=== PATIENT | female | born 1995 | race Caucasian/White ===

== ENCOUNTER 2017-08-13 18:38 | Emergency (ER) | payer OTHER, SELFPAY ==
[2017-08-13 18:42] VITALS: BP 111/84; PULSE 76; RESP 16; TEMP 36.4; O2SAT 98; BMI 22.8
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
[2017-08-13 19:33] VITALS: BP 105/70; PULSE 75; RESP 14; O2SAT 99
== END 2017-08-13 19:33 | disposition home or self-care (01) ==
PROVIDERS: Emergency Provider Emergency Medicine; Family Provider Internal Medicine; PCP Internal Medicine
DX: S00.83XA Contusion of other part of head, initial encounter (principal); Y04.2XXA Assault by strike against or bumped into by another person, initial encounter; Y93.9 Activity, unspecified; Y92.119 Unspecified place in children's home and orphanage as the place of occurrence of the external cause; Y99.0 Civilian activity done for income or pay; F32.9 Major depressive disorder, single episode, unspecified; F41.9 Anxiety disorder, unspecified; Z72.0 Tobacco use; Z79.899 Other long term (current) drug therapy
CPT/HCPCS: 99285

== ENCOUNTER 2018-04-10 15:15 | Emergency (ER) | payer MEDICAID, SELFPAY ==
[2018-04-10 15:17] VITALS: BP 103/66; PULSE 111; RESP 18; TEMP 36.8; O2SAT 96; BMI 21.4
--- NOTE | 2018-04-10 15:46 | ED.VISSUMM ---
- ER Visit Summary Date of Service: 04/10/18 Chief Complaint: Abdominal pain History of Present Illness: The patient is a 23 F who presents with right lower abdominal pain that has been constant for the past year. Patient states the pain is over the right side of her incision. Patient states her pain is aching and is worse with bending over and then standing up. Patient states she feels like something may be growing and kicking in her abdomen. Patient denies any nausea or vomiting. Patient admits to some loose diarrhea. Physical Examination: Vital signs are stable. Patient is afebrile. Patient is in no acute distress. Oral mucosa is pink and moist. Neck is supple. Trachea is midline. There is no JVD noted. Heart was regular rate and rhythm. Lungs are clear and equal bilaterally. Abdomen is soft. Bowel sounds are normal. There is no tenderness noted. There are no masses palpated. Her section incision is well-healed with no erythema or other signs of infection. Cranial nerves II through XII are intact. There are no focal motor or sensory deficits noted. The remaining physical exam is within normal limits. Test Results: CBC, basic metabolic profile, urinalysis, urine hCG were obtained were all within normal limits. Emergency Department Course and Treatment: Patient was given IV fluids. Patient was sleeping on reevaluation. Patient was instructed to follow-up with her primary care physician in 5-7 days. Patient understood and was agreeable with the plan. All questions were answered. Disposition: Discharge home Impression: Abdominal pain This note was generated with [employer] dictation software. It may contain incorrect words, spelling, and punctuation that were not noted in review of the chart prior to signing ED Disposition - Plan for ED Patient: Disposition: Home or Assisted Living Chief Complaint: Abd Pain Diagnosis: Abdominal pain Instructions: ED Abdominal Pain Unkn Cause Referrals: Sophia Akers MD [Primary Care Provider] -
[2018-04-10 15:54] LABS: Mucous, Urine 0 SEEN /hpf (<or=2+); Red Blood Cells-Urine 0 SEEN /hpf (0-5); White Blood Cells 0 SEEN /hpf (0-5)
[2018-04-10] MEDS: 0.9% Normal Saline 1,000 ML 1000 ML IV (15:54)
[2018-04-10 16:02] LABS: Color, Urine Yellow (Yellow); Glucose, Dipstick Normal (Normal); Ketone-Dipstick Negative (Negative); Leukocyte Esterase-Dipstick Negative /ul (Negative); Nitrite-Dipstick Negative (Negative); Occult Blood-Urine Negative /ul (Negative); Protein-Dipstick Negative (Negative); Urine Bilirubin Dipstick Negative (Negative); Urine Urobilinogen Normal (Normal)
[2018-04-10 16:04] LABS: Internal QC Validated? YES +Cl - CLEAR BKGD; Pregnancy, Urine Negative Negative; Urine Clarity Clear (Clear)
[2018-04-10 16:11] LABS: Absolute Lymphocyte Count 2.38 X10^3/ul (0.83-4.51); Absolute Neutrophil Count 7.7 X10^3/uL (2.0-7.7); Basophil# 0.04 X10^3/uL; Basophil% 0.4 % (0-1); Eosinophil# 0.05 X10^3/uL; Eosinophils% 0.5 % (0-5); Hematocrit 42.7 % (37-47); Hemoglobin 13.8 g/dl (12.0-15.0); Lymphocyte # 2.38 X10^3/ul (4.0); Lymphocyte % 22.1 % (19-41); Mean Corp Hgb Conc 32.3 g/gl (32-36); Mean Corpuscular Hgb 27.4 pg (27.0-32.0); Mean Corpuscular Volume 84.9 fL (81-99); Mean Platelet Vol. 11.3 fl (6.2-12.0); Monocyte# 0.57 X10^3/uL; Monocyte% 5.3 % (0-10); Neutrophil # 7.73 X10^3/uL (2.7-7.7); Neutrophil % 71.5 % (47-70); Platelet Count 251 K/mm3 (150-450); RBC Distribution Width CV 13.6 % (11.6-14.6); RBC Distribution Width SD 41.8 fl (35.1-43.9); Red Blood Count 5.03 M/mm3 (4.2-5.4); White Blood Count 10.8 K/mm3 (4.4-11.0)
[2018-04-10 16:14] LABS: Squamous Epithelial Cells - UA 10-25 SEEN /hpf (5-10)
[2018-04-10 16:14] LABS: POSITIVE COUNT NO; POSITIVE DIFFERENTIAL NO; POSITIVE MORPHOLOGY NO
[2018-04-10 16:15] LABS: Bacteria 1+ /hpf (None Seen)
[2018-04-10 16:29] LABS: Anion Gap 9 (5-15); BUN 11 mg/dL (7-18); Calcium,Total 8.9 mg/dL (8.5-10.1); Chloride 104 mmol/L (98-107); Creatinine, Serum 0.65 mg/dL (0.55-1.02); EST Glomerular Filtration Rate 118 mL/min (>60); Est Glom Filt Rate - Afr Amer 143 mL/min (>60); Estimated Creatinine Clearance 99.84 ml/min; Glucose 102 mg/dL (74-106); Potassium 3.6 mmol/L (3.5-5.1); Sodium Level 141 mmol/L (136-145)
[2018-04-10 16:55] VITALS: BP 127/69; PULSE 72; RESP 15; O2SAT 97
== END 2018-04-10 16:56 | disposition home or self-care (01) ==
PROVIDERS: Emergency Provider Emergency Medicine; Family Provider Internal Medicine; PCP Internal Medicine
DX: R10.31 Right lower quadrant pain (principal); Z72.0 Tobacco use
CPT/HCPCS: 80048; 81001; 81025; 85025; 96360; 99283; J7030

== ENCOUNTER 2018-12-05 19:56 | Emergency (ER) | payer MEDICAID, SELFPAY ==
[2018-12-05 19:59] VITALS: BP 116/69; PULSE 76; RESP 18; TEMP 36.3; O2SAT 95; BMI 20.4
--- NOTE | 2018-12-05 20:42 | ED.DCSUM_ITS ---
- ER Visit Summary Date of Service: 12/05/18 Chief Complaint: Right earache, sore throat and tongue swelling History of Present Illness: The patient is a 23 F past male history of depression. Patient states around 11 AM today she thought she was getting a right earache and a mild sore throat. She denies any fever chills or cough. She is able to swallow. Now she thinks her tongue may be swollen a little bit. Currently she is on Celexa. She did take Benadryl at home. She denies any trouble swallowing or breathing. Physical Examination: Young female no acute distress. Vital signs are stable. She is afebrile. Pulse ox 95% on room air no hypoxia. She is sitting reclined in the bed having no trouble breathing or swallowing. No drooling or stridor. HEENT exam TMs are normal and canals are normal bilaterally. Posterior pharynx normal. Her tongue at worst is mildly swollen it may be normal. It is definitely not significantly enlarged. She has no trouble swallowing or breathing. There is no drooling or stridor. Underneath her tongue is nonswollen and nontender. There is no Gonzalez angina. Neck is nontender. No lymphadenopathy. No tracheal tenderness. Lungs clear to auscultation bilaterally. Heart regular rhythm no murmur. Abdomen soft nontender. Patient moving all 4 extremities. Neurovascular intact. Skin no rashes. Neurologically awake and alert no focal deficits. Test Results: None Emergency Department Course and Treatment: Clinically and physical exam there is no signs of infection. Posterior pharynx is normal. There is no strep throat. The right and left eardrums and canals are normal. Tongue may be mildly swollen. She will be given a dose of prednisone and reevaluate. No history of any type of allergic reaction. Treatment Plan: Repeat exam patient doing well at 2153 pm discharge to home. Swelling is now worse and probably improved. Benadryl at home. Return if worse Disposition: Discharge Impression: Tongue swelling uncertain etiology This note was generated with [employer] dictation software. It may contain incorrect words, spelling, and punctuation that were not noted in review of the chart prior to signing ED Disposition - Plan for ED Patient: Disposition: Home or Assisted Living Referrals: Sophia Akers MD [Primary Care Provider] - 3-5 Days if not improving Additional Instructions: Benadryl as needed if tongue feels swollen. Return if worse if much more swollen no trouble breathing or swallowing.
[2018-12-05] MEDS: predniSONE 20 MG Tablet 60 MG PO (20:44)
--- NOTE | 2018-12-05 21:53 | ED.DEP ---
ED Disposition - Plan for ED Patient: Disposition: Home or Assisted Living Instructions: ED Allergic Reaction Local Other Referrals: Sophia Akers MD [Primary Care Provider] - 3-5 Days if not improving Additional Instructions: Benadryl as needed if tongue feels swollen. Return if worse if much more swollen no trouble breathing or swallowing.
[2018-12-05 22:02] VITALS: RESP 18
== END 2018-12-05 22:03 | disposition home or self-care (01) ==
PROVIDERS: Emergency Provider Emergency Medicine; Family Provider Internal Medicine; PCP Internal Medicine
DX: R22.0 Localized swelling, mass and lump, head (principal); H92.01 Otalgia, right ear; F32.9 Major depressive disorder, single episode, unspecified; Z72.0 Tobacco use
CPT/HCPCS: 99283

== ENCOUNTER → 2018-12-08 17:06 | Outpatient (CLI) | payer MEDICAID, SELFPAY ==
[2018-12-08 13:52] VITALS: BMI 20.4
[2018-12-14 17:37] LABS: HPV Reflexed? NOT INDICATED
== END ==
PROVIDERS: Family Provider Internal Medicine; PCP Internal Medicine; Referring Provider Obstetrics & Gynecology; Visit Provider Obstetrics & Gynecology
DX: Z12.4 Encounter for screening for malignant neoplasm of cervix (principal)
CPT/HCPCS: 87624; 88175; G0145

== ENCOUNTER → 2020-01-06 10:44 | Outpatient (CLI) | payer MEDICAID, SELFPAY ==
[2020-01-06 10:20] VITALS: BMI 20.4
[2020-01-06 11:03] LABS: Absolute Lymphocyte Count 1.66 X10^3/uL (0.83-4.51); Absolute Neutrophil Count 3.9 X10^3/uL (2.0-7.7); Basophil# 0.03 X10^3/uL; Basophil% 0.5 % (0-1); Eosinophil# 0.15 X10^3/uL; Eosinophils% 2.3 % (0-5); Hematocrit 39.5 % (37-47); Hemoglobin 12.5 g/dL (12.0-15.0); Lymphocyte # 1.66 X10^3/ul (4.0); Lymphocyte % 25.9 % (19-41); Mean Corp Hgb Conc 31.6 g/dL (32-36); Mean Corpuscular Hgb 28.2 pg (27.0-32.0); Monocyte# 0.61 X10^3/uL; Monocyte% 9.5 % (0-10); NRBC Flagged by Analyzer 0 % (0-5); Neutrophil # 3.93 X10^3/uL (2.7-7.7); Neutrophil % 61.5 % (47-70); Platelet Count 229 K/mm3 (150-450); RBC Distribution Width CV 13.5 % (11.6-14.6); RBC Distribution Width SD 44.5 fl (35.1-43.9); Red Blood Count 4.44 M/mm3 (4.2-5.4); White Blood Count 6.4 K/mm3 (4.4-11.0)
[2020-01-06 11:24] LABS: Thyroid Stim Hormone (TSH) 2.52 uIU/mL (0.358-3.74)
== END ==
PROVIDERS: PCP Internal Medicine; Referring Provider Obstetrics & Gynecology; Visit Provider Obstetrics & Gynecology
DX: N93.9 Abnormal uterine and vaginal bleeding, unspecified (principal)
CPT/HCPCS: 36415; 84443; 85025

== ENCOUNTER → 2020-01-27 12:57 | Outpatient (CLI) | payer MEDICAID, SELFPAY ==
[2020-01-06 10:20] VITALS: BMI 20.4
--- NOTE | 2020-01-27 12:58 | US_ITS ---
STUDY: ULTRASOUND TRANSVAGINAL CLINICAL: Female, 25 years old. aub TECHNIQUE: Transvaginal COMPARISON: None. FINDINGS: Normal uterine size measuring 8.3 cm in maximal craniocaudal dimension. There are no myometrial masses. Normal endometrial thickness measuring 9.6 mm. There are no endometrial masses, and there is no fluid in the endometrial cavity. Normal uterine cervix. Normal right ovary, measuring 3.3 x 2.1 x 3.4 cm. There is a simple 1.7 x 1.7 x 1.5 cm cyst. Normal left ovary, measuring 2.8 x 1.9 x 1.9 cm. There are multiple follicles without a dominant cyst. There is no free fluid in the pelvis. US/Transvaginal Non- IMPRESSION: Within normal limits appearing uterus. Simple 1.7 x 1.5 x 1.7 cm right ovarian cyst. Electronically Signed: Emily Hinds MD at 17:12 EDT Tel , Service support ,
--- NOTE | 2020-01-27 12:58 | US_ITS ---
STUDY: ULTRASOUND TRANSVAGINAL CLINICAL: Female, 25 years old. aub TECHNIQUE: Transvaginal COMPARISON: None. FINDINGS: Normal uterine size measuring 8.3 cm in maximal craniocaudal dimension. There are no myometrial masses. Normal endometrial thickness measuring 9.6 mm. There are no endometrial masses, and there is no fluid in the endometrial cavity. Normal uterine cervix. Normal right ovary, measuring 3.3 x 2.1 x 3.4 cm. There is a simple 1.7 x 1.7 x 1.5 cm cyst. Normal left ovary, measuring 2.8 x 1.9 x 1.9 cm. There are multiple follicles without a dominant cyst. There is no free fluid in the pelvis. US/Pelvic (Non ) IMPRESSION: Within normal limits appearing uterus. Simple 1.7 x 1.5 x 1.7 cm right ovarian cyst. Electronically Signed: Emily Hinds MD at 17:12 EDT Tel , Service support ,
== END ==
PROVIDERS: PCP Internal Medicine; Referring Provider Obstetrics & Gynecology; Visit Provider Obstetrics & Gynecology
DX: N93.9 Abnormal uterine and vaginal bleeding, unspecified (principal)
CPT/HCPCS: 76830; 76856

== ENCOUNTER 2022-08-22 15:46 | Emergency (ER) | payer MEDICAID, SELFPAY ==
[2022-08-22 15:47] VITALS: BP 111/42; PULSE 78; RESP 16; TEMP 36.1; O2SAT 100; BMI 18.3
--- NOTE | 2022-08-22 17:25 | RAD_ITS ---
STUDY: X-RAY - UNILATERAL RIBS ( RIGHT ) WITH CHEST REASON FOR EXAM: Female, 27 years old. rib pain TECHNIQUE - RIBS: 3 view(s) of the ribs. TECHNIQUE - CHEST: PA COMPARISON: None. FINDINGS - RIBS: Normal visualized ribs without a demonstrated fracture. FINDINGS - CHEST: The lungs are clear and expanded. There is no demonstrated pleural abnormality. Normal size heart. Normal mediastinum and isabel. Normal visualized pulmonary arteries. Normal visualized aortic arch and descending thoracic aorta. Thoracolumbar spine demonstrates mild dextroscoliosis or splinting.. Normal visualized ribs, clavicles, and shoulders. There is no demonstrated abnormality of the visualized soft tissue structures of the upper abdomen. RAD/Ribs Uni Min 3V w/PA Chest IMPRESSION: RIBS: Normal x-ray examination of the ribs. If pain persists bone scan or CT would be helpful for further evaluation CHEST: No acute cardiopulmonary pathology. Electronically Signed: Anuj Jordan MD at 17:44 EST ,
--- NOTE | 2022-08-22 17:40 | EDS_ITS ---
HPI <SAULO Ryan - Last Filed: 08/22/22 17:48> History of Present Illness Chief Complaint: Chest Pain Narrative Narrative: Patient is a 27-year-old female with history of post depression who presents the emergency department with 2 months of right-sided chest pain. Patient states the pain has been worse with deep inspiration, movement of her arms, turning. Patient states that she is just here to get it checked out. She denies any cough, denies any trauma, fever chills nausea or vomiting. She denies being on any control, no recent travel, no history of blood clots in her legs or lungs PFSH <SAULO Ryan - Last Filed: 08/22/22 17:48> [facility] Home Medications citalopram 40 mg tablet (Celexa) 40 mg PO DAILY #90 tabs 11/07/21 [Rx Last Taken Unknown] naproxen 500 mg tablet 500 mg PO BID #14 tabs 08/22/22 [Rx Last Taken Unknown] Allergy/AdvReac Type Severity Reaction Status Date / Time levofloxacin [From Levaquin] Allergy Hives Verified 05/30/21 08:13 Penicillins Allergy Hives rash Verified 05/30/21 08:13 throat swelling Surgical History History of delivery History of tonsillectomy and adenoidectomy Steele teeth removed Social History Smoking Status: Current every day smoker tobacco type: cigarettes alcohol intake: never substance use type: does not use caffeine: Yes what type of physical activity do you participate in: none seatbelt use: always do you feel safe at home: Yes additional social history: [employer] for [employer] Patient works at [employer] ROS <SAULO Ryan - Last Filed: 08/22/22 17:48> ROS ED ROS Narrative Constitutional: Negative for fever, chills, weight loss, weakness Eyes: Negative for vision loss, vision change, double vision ENT: Negative for any sore throat, ear pain, congestion Cardiovascular: Negative for any chest pain, tightness, palpitations Respiratory: Negative for any cough, sputum production, hemoptysis, dyspnea, dyspnea on exertion, orthopnea Gastrointestinal: Negative for any abdominal pain, nausea, vomiting, diarrhea, constipation, blood in stool, blood in vomit : Negative for any urinary frequency, dysuria, retention, blood in urine Muscle skeletal: Negative for any muscle joint pain, stiffness, myalgias, arthralgias, neck pain, back pain. Positive right-sided anterior chest pain Neurological: Negative for any headache, syncope, numbness or tingling, dizziness Skin: Negative for any rashes, lumps, itching, abrasions, lacerations Psychiatric: Negative for any depression, anxiety, stress, suicidal ideation, homicidal ideation Hematologic: Negative for any easy bruising, excessive bruising, easy bleeding Allergies: Negative for any eczema, hives, rash EXAM <SAULO Ryan - Last Filed: 08/22/22 17:48> Physical Exam Narrative Exam Narrative: Vital signs reviewed. HEET: Head normocephalic atraumatic, TMs clear bilaterally. Posterior pharynx is clear, moist mucous membranes. Nares clear bilaterally. Neck: Supple with no lymphadenopathy or tenderness. No signs of meningismus, negative jolt sign. Cardiac: Regular rate and rhythm no murmurs gallops or rubs, equal peripheral pulses bilaterally. Respiratory: Lungs clear to auscultation bilaterally. Patient has tenderness to the anterior right chest. This pain is also worse with any rotation. No crepitus noted Abdomen: Soft, nontender, nondistended. No abdominal bruit or pulsatile masses. No hepatosplenomegaly Extremities: No peripheral edema, no signs of gross trauma or deformity. Active full range of motion of all extremities. Neuro: Cranial nerves II through XII intact, no focal neurological deficits. Skin: Clean dry and intact with no rash, purpura, petechiae, vesicles or pustules. Backs/flank: No CVA tenderness, no midline spinal tenderness, no deformity. Psych: Normal mood and affect. No SI, HI or acute psychosis. Const Vital Signs: 08/22/22 15:47 08/22/22 18:00 Temperature 97 F L Temperature Source Temporal Pulse Rate 78 Respiratory Rate 16 14 Blood Pressure 111/42 L Blood Pressure Mean 65 Pulse Ox 100 Oxygen Delivery Method Room Air <Dr. Rohit Carroll MD - Last Filed: 03/02/23 18:15> Physical Exam Const Vital Signs: 08/22/22 15:47 08/22/22 18:00 Temperature 97 F L Temperature Source Temporal Pulse Rate 78 Respiratory Rate 16 14 Blood Pressure 111/42 L Blood Pressure Mean 65 Pulse Ox 100 Oxygen Delivery Method Room Air [facility] <SAULO Ryan - Last Filed: 08/22/22 17:48> [facility] Radiography Diagnostic Testing: Clinical Impression(s) from Imaging Studies Ribs w/Chest X-Ray 08/22/22 17:25 IMPRESSION: RIBS: Normal x-ray examination of the ribs. If pain persists bone scan or CT would be helpful for further evaluation CHEST: No acute cardiopulmonary pathology. Electronically Signed: Anuj Jordan MD at 17:44 EST , Differential Diagnosis Chest pain/SOB: pulmonary embolism and pneumonia Why less likely: Patient is PERC negative Why less likely: No infectious-like symptoms Additional Tests and Interventions Diagnositc testing considered but not performed: PA the chest, no concern for pulmonary embolus Treatment and Re-Evaluation :: Patient appears generally well, patient appears nontoxic, vital signs are stable. Patient presents to the emergency department with complaints of right- sided chest pains been ongoing for 2 months. Patient is PERC negative, patient's vital signs are stable. Patient's physical examination consistent with a muscle pain, costochondritis. Patient did receive x-rays of the right rib series as well as a chest. This was unremarked for any acute process. There is no indication to suspect any pneumothorax, pneumonia. Patient will continue to use anti-inflammatories, perform gentle stretching and to ice and heat. Patient is agreeable with the plan. She was given return precaution. Patient stable for discharge. <Dr. Rohit Carroll MD - Last Filed: 08/22/22 18:15> [facility] Narrative Medical decision making narrative: Seen and evaluated independently and in conjunction with nurse practitioner. Agree with notes above unless documented otherwise. Patient with point pain and reproducible tenderness at an intercostal space just below the right breast that has been there for several weeks, started when she was coughing really hard. Her illness is better now. She denies any dyspnea, hurts more to move and more to breathe. 4 view chest and right rib series normal on my interpretation, radiology confirms this is unremarkable. Patient reassured, prescribed NSAIDs, her PERC score is 0 no further work-up indicated for this chest wall pain. She is comfortable with overall plan. Radiography Diagnostic Testing: Clinical Impression(s) from Imaging Studies Ribs w/Chest X-Ray 08/22/22 17:25 IMPRESSION: RIBS: Normal x-ray examination of the ribs. If pain persists bone scan or CT would be helpful for further evaluation CHEST: No acute cardiopulmonary pathology. Electronically Signed: Anuj Jordan MD at 17:44 EST Reading Location ID and State: [address] [place] [address] , Service support , Discharge Plan Triage Chief Complaint: Chest Pain ED Midlevel Provider: Edwin Higuera ED Provider: Rohit Carroll Dx/Rx/DC Orders Clinical Impression: Intercostal muscle strain, Pain on movement of skeletal muscle Instructions: Costochondritis, ED Chest Wall Pain, Costochondritis Prescriptions: New naproxen 500 mg tablet 500 mg PO BID Qty: 14 0RF No Action citalopram [Celexa] 40 mg tablet 40 mg PO DAILY Qty: 90 2RF Primary Care Provider: Sophia Akers Referrals: Sophia Akers MD [Primary Care Provider] - Activity Restrictions/Additional Instructions: Please use anti-inflammatories. Ice and heat, perform gentle stretching gentle stretching Disposition Disposition: Home, Self Care Discharge Date/Time: 08/22/22 18:05
[2022-08-22 18:00] VITALS: RESP 14
== END 2022-08-22 18:05 | disposition home or self-care (01) ==
PROVIDERS: Emergency Provider Emergency Medicine; PCP Internal Medicine; Visit Provider Emergency Medicine
DX: S29.011A Strain of muscle and tendon of front wall of thorax, initial encounter (principal); F17.210 Nicotine dependence, cigarettes, uncomplicated; X58.XXXA Exposure to other specified factors, initial encounter
CPT/HCPCS: 71101; 99282

== ENCOUNTER 2023-05-05 15:14 | Outpatient (RCR) | payer MEDICAID, SELFPAY ==
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
--- NOTE | 2023-09-29 19:54 | HP.PT.NRP ---
Patient Information Patient Information: LUCILA ESCALANTE was seen in my office for initial evaluation on 05/05/23. The following Plan of Care was established for this patient: POC Established Initial Frequency: 2-3x /Week Initial Duration: 4-6 Weeks Anticipated Interventions Patient/Client Instruction: Educate patient on: Condition, Plan of Care and Risk Factors For the Purpose of:: To improve self management Therapeutic Exercise to Include: Strength training, Body mechanics, Postural training, Flexibilty training, Neuromotor development, In an aquatic setting and Dynamic Lumbar Stabilization For the Purpose of:: To decrease pain, To increase ROM, To improve muscle performance and motor function, To increase tolerance to activity/condition/position and To improve ability of physical actions for home/community/work/leisure Cryotherapy (ice pack, ice massage): Yes Thermo therapy (hot pack): Yes Ultrasound (thermal/non thermal): Yes For the Purpose of:: To decrease pain, To decrease swelling/inflammation and To improve nutrient delivery to tissue Last Seen Last Seen: This patient was last seen in our office 05/05/24. Pertinent comments regarding their Physical therapy will appear below: This patient has not returned to Physical Therapy and is appropriate to return to MD for further follow-up as needed. At this point I will be discontinuing this patient from physical therapy. I would be happy to see this patient again in the future if found appropriate by the physician. Thank you! Anastacia Martinez, PT, Cert MDT Balance/Gait/Functional tests Balance/Special Test Scores Oswestry Low Back Score: 8
== END 2023-05-05 19:00 | disposition home or self-care (01) ==
LOC: PT 15:14
PROVIDERS: PCP Internal Medicine; Referring Provider Orthopaedic Surgery Orthopaedic Surgery of the Spine; Visit Provider Orthopaedic Surgery Orthopaedic Surgery of the Spine
DX: M54.50 Low back pain, unspecified (principal)
CPT/HCPCS: 97112; 97161

== ENCOUNTER → 2023-07-16 | Outpatient (CLI) | payer MEDICAID, SELFPAY ==
--- OUTSIDE RECORDS SUMMARY | 2023-07-16 14:33 | XMS RPT_ITS | CCD ---
Author Name Unknown Address [address] [place] [address] Organization [facility] Care Team Providers Care Rides Attendant Name Role Phone SEBASTIÁN ROSALIE Unavailable Unavailable DANE COULTER Unavailable Unavailable Allergies Allergy Classification Reported Allergen(s) Allergy Type Date of Onset Reaction(s) Facility (1 source) levoFLOXacin; Translations: [LEVOFLOXACIN] Drug Allergy 07-17-2012 [facility] Repository (1 source) penicillin; Translations: [PENICILLIN G] Drug Allergy 06-06-2014 [facility] Repository Results Test Name Value Interpretation Reference Range Facil ity Encounters Encounter Date Encounter Type Care Provider Facility Start: 02-27-2017 End: 02-28-2017 Ambulatory [facility] Start: 12-20-2016 End: 12-20-2016 Ambulatory [facility] Summary Purpose Family History No Family History Records Found Advance Directives No Advanced Directives Records Found Additional Source Comments INFORMATION SOURCE (unrecogn ized section and content) FOR RECORDS PERTAINING TO PATIENTS WHO ARE OR HAVE BEEN ENROLLED IN A CHEMICAL DEPENDENCY/SUBSTANCEABUSE PROGRAM, SOME INFORMATION MAY BE OMITTED. This clinical summary was aggregated from multiple sources. Caution should be exercised in using it in the provision of clinical care. This summary normalizes information from multiple sources, and as a consequence, information in this document may materially change the coding, format and clinical context of patient data. In addition, data may be omitted in some cases. CLINICAL DECISIONS SHOULD BE BASED ON THE PRIMARY CLINICAL RECORDS. [facility] [employer] provides no warranty or guarantee of the accuracy or completeness of information in this document.
[2023-07-21 14:08] LABS: HPV APTIMA, High Risk Negative (Negative)
== END | disposition home or self-care (01) ==
LOC: LABSPEC 13:52
PROVIDERS: PCP Internal Medicine; Referring Provider Nurse Practitioner Women's Health; Visit Provider Nurse Practitioner Women's Health
DX: Z12.4 Encounter for screening for malignant neoplasm of cervix (principal)
CPT/HCPCS: 87624; 88175; G0145

== ENCOUNTER → 2023-09-10 | Outpatient (CLI) | payer MEDICAID, SELFPAY ==
--- NOTE | 2023-09-10 13:48 | CT_ITS ---
STUDY: CT PELVIS WITH CONTRAST REASON FOR EXAM: Female, 28 years old. Right lower quadrant pain RADIATION DOSAGE (If Supplied By Facility): CTDIvol = ( 22.71 ) mGy, DLP = ( 667.67 ) mGycm TECHNIQUE: Transaxial imaging of the pelvis was performed without oral contrast. Oral and amp; IV Readi-CAT and amp; 100mL Isovue-300 was administered intravenously. Individualized dose optimization techniques were used for this CT. COMPARISON: None. FINDINGS: Normal urinary bladder. There is 1.6 cm dominant follicle in the right ovary. The endometrium measures 12.4 mm. This may be related to the patient''s menstrual phase. Normal visualized small intestine. Normal visualized colon. There is no pelvic fluid. There is no pelvic lymphadenopathy or mass lesion. Normal visualized pelvic arteries. Small bilateral benign-appearing inguinal lymph nodes. Normal osseous structures. CT/Pelvis WITH IV Contrast IMPRESSION: Dominant follicle in the right ovary. Small benign-appearing bilateral inguinal lymph nodes. Endometrial thickening most likely related to the patient''s menstrual phase. Electronically Signed: Moncho Hooker MD at 14:10 EDT ,
== END | disposition home or self-care (01) ==
LOC: CT 13:47
PROVIDERS: PCP Internal Medicine; Referring Provider Surgery; Visit Provider Surgery
DX: R10.11 Right upper quadrant pain (principal)
CPT/HCPCS: 72193; Q9967

== ENCOUNTER 2023-11-19 08:25 | Emergency (ER) | payer MEDICAID, SELFPAY ==
[2023-11-19 08:26] VITALS: BP 112/98; PULSE 75; RESP 16; TEMP 36.2; O2SAT 100; BMI 16.8
--- NOTE | 2023-11-19 08:37 | ED.VIS.CHEST ---
HPI History of Present Illness Chief Complaint: Chest Pain Informant: patient Onset/Context/Timing Onset: Days (3) Activity at onset: sudden and rest Timing: Continuous Quality: Positive for Dull Location: Right Chest Worsened By: Breathing Relieved By: Nothing Associated Symptoms: Positive for Dyspnea; Negative for Nausea, Vomiting, Diaphoresis, Cough, Fever, Lightheadedness, Acid Reflux or Palpitations Narrative Narrative: Patient presents with right-sided chest pain that began 3 days ago. Patient states she was sitting in a car when this began. Patient states it is mainly over the right side of her chest. Patient describes her pain as dull. Patient states it is worse with deep breathing. Patient states nothing makes it better. Patient admits to some shortness of breath. Patient denies any nausea or vomiting. Patient denies any diaphoresis. Patient denies any cough or fevers. Patient denies any palpitations. CVD Risk Factors: Positive for Smoking; Negative for Hypertension, Diabetes, Hypercholesterolemia or Family History 1' </=55 PE Risk Factors: Negative for Recent Travel/Surgery, Recent Immobilization, Prior DVT or PE, Cancer or OCP + Smoking + >/=35 PFSH PFSH Medical History (Updated 11/19/23 @ 10:[address] Rachid Leonard, ) depression Home Medications ?Medication ?Instructions ?Recorded ?Last Taken ?Type citalopram 40 mg tablet (Celexa) 40 mg PO DAILY #90 tabs 06/24/23 Unknown Rx Allergy/AdvReac Type Severity Reaction Status Date / Time levofloxacin (From Levaquin) Allergy Hives Verified 11/19/23 08:27 Penicillins Allergy Hives rash Verified 11/19/23 08:27 throat swelling Family History Mother Spina bifida Surgical History History of delivery [place] teeth removed History of tonsillectomy and adenoidectomy Social History Smoking Status: Current every day smoker tobacco type: cigarettes alcohol intake: never substance use type: does not use caffeine: Yes what type of physical activity do you participate in: none seatbelt use: always do you feel safe at home: Yes additional social history: [employer] for cars Patient works at [employer] Home ROS ROS ED Constitutional Constitutional ED: Denies chills or fever(s) Eyes Eyes: Denies blurry vision or change in vision ENT ENT ED: Denies rhinorrhea or sore throat Cardiovascular Cardiovascular: Reports chest pain; Denies palpitations Respiratory/Chest Respiratory/Chest: Reports dyspnea; Denies cough Gastrointestinal Gastrointestinal: Denies nausea or vomiting Genitourinary Genitourinary ED: Denies dysuria or hematuria Musculoskeletal Musculoskeletal: Reports back pain; Denies neck pain Integumentary Denies abscess or rash Neurologic Neurologic: Denies headache(s) or weakness Allergic/Immunologic Allergic/Immunologic ED: Denies mouth swelling or urticaria EXAM Physical Exam Const Vital Signs: 11/19/23 08:26 11/19/23 08:41 11/19/23 08:57 Temperature 97.1 F L Temperature Source Temporal Pulse Rate 75 Respiratory Rate 16 Respiratory Effort Normal Blood Pressure 112/98 H Blood Pressure Mean 102 Pulse Ox 100 Oxygen Delivery Method Room Air Room Air 11/19/23 09:25 11/19/23 10:00 Temperature 97.8 F Temperature Source Temporal Pulse Rate 48 L 48 L Respiratory Rate 16 16 Respiratory Effort Blood Pressure 98/72 101/76 Blood Pressure Mean 80 84 Pulse Ox 98 98 Oxygen Delivery Method Room Air Room Air Positive well nourished and well developed General Appearance ED: well developed and NAD HEENT Reports moist mucous membranes Neck supple and no JVD Chest Wall Chest Narrative: There is tenderness to palpation over the right upper chest. There is no subcutaneous emphysema noted. There is no bony crepitance or step-off noted. Resp normal respiratory effort and clear to auscultation bilaterally Cardio regular rate and regular rhythm GI soft to palpation, non-tender and non-distended Neuro oriented x3, CN's II-XII intact bilaterally and no sensory deficits noted Sensorium / Orientation: awake and alert Motor Exam: strength 5/5 throughout Psych mental status grossly normal Heart Score History: Slightly/Non-Suspicious ECG: Normal Age: </= 45 years Risk Factors: 1 or 2 Risk Factors Troponin: </= Normal Limit Score: 1 MDM MDM MDM Narrative Medical decision making narrative: Differential diagnosis includes cardiac dysrhythmia, cardiac ischemia, pneumonia, pneumothorax, pulmonary embolism, electrolyte abnormality, and musculoskeletal pain. EKG will be obtained to assess for cardiac dysrhythmia and cardiac ischemia. Chest x-ray will be obtained to assess for pneumonia and pneumothorax. CBC will be obtained to assess for leukocytosis and anemia. Basic metabolic profile will be obtained to assess for electrolyte abnormality and renal function. High-sensitivity troponin will be obtained to assess for cardiac ischemia. D-dimer will be obtained to assess for pulmonary embolism. Lab Data Attestation: I reviewed the patient's lab results. Lab results narrative: CBC was reviewed and was within normal limits. Basic metabolic profile was reviewed and was within normal limits. High-sensitivity troponin was reviewed and was normal at less than 3. D-dimer was reviewed and was normal at 0.40. Labs: Laboratory Results - last 24 hr 11/19/23 08:55 WBC 3.9 L RBC 4.54 Hgb 13.0 Hct 40.0 MCV 88.1 MCH 28.6 MCHC 32.5 RDW Std Deviation 45.2 H RDW Coeff of Sravani 14.0 Plt Count 211 MPV 11.0 Immature Gran % (Auto) 0.300 Neut % (Auto) 54.4 Lymph % (Auto) 31.4 [place] % (Auto) 7.7 Eos % (Auto) 4.9 Baso % (Auto) 1.3 H Absolute Neuts (auto) 2.1 Absolute Lymphs (auto) 1.22 Nucleated RBC % 0 D-Dimer Quant (PE/DVT) 0.40 Sodium 138 Potassium 4.2 Chloride 109 H Carbon Dioxide 26.0 Anion Gap 3 L BUN 8 Creatinine 0.61 Estim Creat Clear Calc 88.84 Est GFR (MDRD) Af Amer 146 Est GFR (MDRD) Non-Af 121 BUN/Creatinine Ratio 13.1 Glucose 104 Calcium 8.6 Troponin I High Sens < 3 L Radiography Chest X-Ray - ED: 2 View, Read by ED Physician, Read by Radiologist and No Acute Disease Diagnostic Testing: Clinical Impression(s) from Imaging Studies Chest X-Ray 11/19/23 09:01 IMPRESSION: Normal x-ray examination of the chest. Electronically Signed: Moncho Hooker MD at 9:12 EDT , PA and lateral chest x-ray was obtained. There are 2 views. On my independent interpretation, lung parr are clear. There is normal cardiac silhouette. Bony thorax is normal. There is no acute process noted. Radiologist also interpreted the x-ray and agrees. EKG Initial EKG: Attestation: I personally reviewed and interpreted this EKG as follows: Interpretation: Sinus Rhythm (62) and No Acute Injury Pattern Comments: EKG was obtained. On my independent interpretation, it showed a normal sinus rhythm with a rate of 62. NV interval, QRS interval, and QTc intervals were all normal. [place] was normal. There are no acute ST or T wave changes. Prior EKG tracings: not available for review Prior: No Prior Treatment and Re-Evaluation :: Patient was given aspirin. Patient is feeling better on reevaluation. Patient was advised of her findings. Smoking cessation was discussed. Patient has a HEART score of 1. Patient was advised that this is low risk for acute cardiac event. Patient was instructed to follow-up with her primary care physician in 5 to 7 days. Patient understood and was agreeable with the plan. All questions were answered. Discharge Plan Triage Chief Complaint: Chest Pain ED Provider: Rachid Leonard Dx/Rx/DC Orders Clinical Impression: Right-sided chest pain, Tobacco use disorder Instructions: ED Chest Pain, Noncardiac Prescriptions: No Action citalopram [Celexa] 40 mg tablet 40 mg PO DAILY Qty: 90 2RF Primary Care Provider: Sophia Akers Referrals: Sophia Akers MD [Primary Care Provider] - 5-7 Days Print Language: Congolese Disposition Disposition: Home, Self Care
--- NOTE | 2023-11-19 08:43 | EKG12_ITS ---
Test Reason : CP Blood Pressure : / mmHG Vent. Rate : 062 BPM Atrial Rate : 062 BPM P-R Int : 138 ms QRS Dur : 088 ms QT Int : 418 ms P-R-T Axes : 070 083 038 degrees QTc Int : 424 ms Normal sinus rhythm with sinus arrhythmia Normal ECG No previous ECGs available Confirmed by SHIRLEY HIDALGO, ADRIAN ([id number]), industrial editor KARL TOBIN ([id number]) on 11/25/2023 6:13:17 AM Referred By: TORSTEN Confirmed By:ADRIAN WATSON MD
[2023-11-19] MEDS: Aspirin 81 MG TAB.CHEW 324 MG PO (08:50)
--- NOTE | 2023-11-19 09:01 | RAD_ITS ---
STUDY: X-RAY CHEST REASON FOR EXAM: Female, 28 years old. Chest pain TECHNIQUE: PA and lateral views of the chest. COMPARISON: None. FINDINGS: EKG electrodes are seen. Hyperinflation. The lungs are clear. There is no demonstrated pleural abnormality. Normal size heart. Normal mediastinum and isabel. Normal visualized pulmonary arteries. Normal visualized aortic arch and descending thoracic aorta. Normal visualized thoracic spine. Normal visualized ribs, clavicles, and shoulders. There is no demonstrated abnormality of the visualized soft tissue structures of the upper abdomen. RAD/Chest PA and Lateral IMPRESSION: Normal x-ray examination of the chest. Electronically Signed: Moncho Hooker MD at 9:12 EDT ,
[2023-11-19 09:04] LABS: Absolute Lymphocyte Count 1.22 X10^3/uL (0.83-4.51); Absolute Neutrophil Count 2.1 X10^3/uL (2.0-7.7); Basophil# 0.05 X10^3/uL; Basophil% 1.3 % (0-1); Eosinophil# 0.19 X10^3/uL; Eosinophils% 4.9 % (0-5); Lymphocyte # 1.22 X10^3/ul (0.83-4.51); Lymphocyte % 31.4 % (19-41); Mean Corp Hgb Conc 32.5 g/dL (32-36); Mean Corpuscular Hgb 28.6 pg (27.0-32.0); Mean Corpuscular Volume 88.1 fL (81-99); Monocyte% 7.7 % (0-10); NRBC Flagged by Analyzer 0 % (0-5); Neutrophil # 2.11 X10^3/uL (2.7-7.7); Neutrophil % 54.4 % (47-70); Platelet Count 211 K/mm3 (150-450); RBC Distribution Width SD 45.2 fl (35.1-43.9); Red Blood Count 4.54 M/mm3 (4.2-5.4); White Blood Count 3.9 K/mm3 (4.4-11.0)
[2023-11-19 09:25] VITALS: BP 98/72; PULSE 48; RESP 16; O2SAT 98
[2023-11-19 09:31] LABS: Anion Gap 3 (5-15); BUN 8 mg/dL (7-18); BUN/Creat Ratio 13.1 RATIO (10-20); Calcium,Total 8.6 mg/dL (8.5-10.1); Chloride 109 mmol/L (98-107); Creatinine, Serum 0.61 mg/dL (0.55-1.02); EST Glomerular Filtration Rate 121 mL/min (>60); Est Glom Filt Rate - Afr Amer 146 mL/min (>60); Estimated Creatinine Clearance 88.84 ml/min; Glucose 104 mg/dL (74-106); Potassium 4.2 mmol/L (3.5-5.1); Sodium Level 138 mmol/L (136-145); Troponin-I HS < 3 pg/mL (3.0-54.0)
[2023-11-19 10:00] VITALS: BP 101/76; PULSE 48; RESP 16; TEMP 36.6; O2SAT 98
[2023-11-19 10:41] VITALS: BP 131/72; PULSE 62; RESP 15; TEMP 36.4; O2SAT 98
== END 2023-11-19 10:43 | disposition home or self-care (01) ==
PROVIDERS: Emergency Provider Emergency Medicine; PCP Internal Medicine; Visit Provider Emergency Medicine
DX: R07.9 Chest pain, unspecified (principal); F17.210 Nicotine dependence, cigarettes, uncomplicated
CPT/HCPCS: 71046; 80048; 84484; 85025; 85379; 93005; 99284

== ENCOUNTER → 2024-09-23 | Outpatient (CLI) | payer MEDICAID, SELFPAY ==
--- NOTE | 2024-09-23 14:13 | US_ITS ---
PROCEDURE: PELVIC W/ TRANSVAGINAL REASON FOR EXAM: MENORRHAGIA/AUB TECHNIQUE: Transabdominal and transvaginal pelvic ultrasound COMPARISON: None FINDINGS: LMP: September 08, 2024. Measurements: Uterus: 8.5 cm x 4.9 cm x 3.8 cm with a volume of 83.6 mL Endometrial Thickness: 12.1 mm. It is heterogeneous in appearance. Right Ovary: 3.5 cm x 3.5 cm x 2 cm with a volume of 12.7 mL. Left Ovary: 2.6 cm x 2 cm x 2 cm with a volume of 5.5 mL. TRANSABDOMINAL: Uterus: Unremarkable Endometrium: Thickened of the endometrium. Right ovary: Small follicles are seen. Left ovary: Unremarkable Transvaginal sonography was performed to better visualize the endometrium. TRANSVAGINAL: Uterus: The endometrium is thickened measuring 12.1 mm. It is of heterogeneous echotexture. Endometrium: Endometrial thickened Right ovary: Small follicles are seen within the right ovary. Left ovary: Unremarkable Other adnexal findings: None. Cul-de-sac: No free intraperitoneal fluid identified. Tenderness: No tenderness US/Pelvic w/ Transvaginal IMPRESSION: Endometrial thickening. Follicle seen in the right ovary. Reading Location: [place] [id number]
== END | disposition home or self-care (01) ==
LOC: US 14:13
PROVIDERS: PCP Internal Medicine; Referring Provider Obstetrics & Gynecology; Visit Provider Obstetrics & Gynecology
DX: N93.9 Abnormal uterine and vaginal bleeding, unspecified (principal)
CPT/HCPCS: 76830; 76856

== ENCOUNTER → 2024-11-11 | Outpatient (CLI) | payer MEDICAID, SELFPAY ==
--- NOTE | 2024-11-11 13:59 | US_ITS ---
PROCEDURE: BREAST LIMITED UNILATERAL 11/11/2024 REASON FOR EXAM: LEFT SIDED BREAST PAIN TECHNIQUE: Targeted left breast ultrasound. COMPARISON: Prior mammogram done earlier in the day. FINDINGS: Left breast ultrasound was targeted to the lateral aspect of the breast.. There is a 4 mm x 4 mm x 3 mm cyst at the 1 o'clock position of the breast at 4 cm from the nipple. US/Breast Limited Unilateral IMPRESSION: Impression: 4 mm x 4 mm x 3 mm cyst at the 1 o'clock position of the breast at 4 cm from the nipple. Birads: BI-RADS 2: BENIGN. RECOMMEND ANNUAL MAMMOGRAPHIC SCREENING. Reading Location: [place] [id number]
--- NOTE | 2024-11-11 13:59 | BI_ITS ---
EXAM: DIAG MAMM W/CAD, BILAT 11/11/2024 CLINICAL HISTORY: F, Age 29 y/o , LEFT SIDED BREAST PAIN. TECHNIQUE: Bilateral Diagnostic digital breast tomosynthesis with 2D and 3D images. Computer aided detection. COMPARISON: Baseline study. FINDINGS: TISSUE DENSITY: The breast tissue is extremely dense which lowers the sensitivity of mammography. Bilateral Breast Mammographic Findings: No significant masses, calcifications or other abnormalities are identified. With the patient's history of left-sided breast pain, targeted sonographic correlation recommended. BI/DIAG MAMM W/CAD, BILAT IMPRESSION: OVERALL FINAL ASSESSMENT: BIRADS 0 Incomplete: Need additional imaging evaluati on and/or prior mammograms for comparison.. RECOMMENDATION: Targeted sonographic correlation recommended. A letter with findings and recommendations will be mailed to the patient. Reading Location: [place] [id number]
== END | disposition home or self-care (01) ==
LOC: OPBI 13:58
PROVIDERS: PCP Internal Medicine; Referring Provider Obstetrics & Gynecology; Visit Provider Obstetrics & Gynecology
DX: N64.4 Mastodynia (principal)
CPT/HCPCS: 77062; 76642; 77066; G0279